=== PATIENT | female | born 1930 | race Hispanic/Latino ===

== ENCOUNTER → 2019-01-05 | Outpatient (CLI) | payer OTHER, MEDICARE ==
[~2019-01-05] MED LIST: DIATR MEGLU/DIATRIZOATE SODIUM 30 ML BOTTLE ONE; FOLI0.8T22 PO; GUAIFDM PO; METH2.5T6 PEG; METO25TA6 PEG; PRAV20TA4 PEG; VITA1TAB22 PEG
== END | disposition home or self-care (01) ==
LOC: RAH 16:44
PROVIDERS: ATTEND Internal Medicine Gastroenterology
DX: K94.20 Gastrostomy complication, unspecified (principal)
CPT/HCPCS: 74018; Q9963